=== PATIENT | male | born 1935 | race Caucasian/White ===

== ENCOUNTER → 2016-04-12 | Outpatient (CLI) | payer OTHER, MEDICARE ==
--- NOTE | 2016-04-12 15:30 | MR ---
MRI Brain Without Contrast dated April 12, 2016 Indication: 80-year-old man with paresthesias and numbness. Technique: Sagittal and axial T1, axial T2, FLAIR, susceptibility weighted, and diffusion-weighted im aging. Comparison: MRI of the brain dated August 22, 2014. Findings: Diffusion-weighted imaging is normal. No evidence of acute ischemia. The FLAIR and T2-weigh babak sequences reveal unchanged mild volume of subcortical and periventricular hyperintense white nilda er disease in the frontal, parietal, and to a lesser degree the occipital lobes. No new white matter lesion or involvement of the midbrain or cerebellum. Mild atrophy is unchanged. The midline ventricul ar system is normal caliber for degree of volume loss. The sagittal sinus and basivertebral arteries have normal black flow-void in T2-weighted imaging. The cervicooccipital junction is normal. The pitu itary gland is normal in size. The orbits are normal. Mild mucosal thickening in the maxillary air ce lls is unchanged. No layering fluid or evidence of acute sinusitis. Impression: 1. No acute intracranial process. Specifically, no acute intracranial hemorrhage or evidence of ische edvin. 2. 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
== END ==
LOC: FIMAGING 12:01
DX: R20.9 Unspecified disturbances of skin sensation (principal)

== ENCOUNTER → 2016-05-09 | Outpatient (CLI) | payer OTHER, MEDICARE ==
--- NOTE | 2016-05-09 14:04 | US ---
Bilateral Duplex Carotid Sonography Clinical Indications: 80-year-old male with tingling on the right side of his face and neck. Rule ou t hemodynamically significant stenosis. ICD 10 Diagnostic Codes: R20.0 and R20.2. Technique: The cervical portions of the carotid and vertebral arteries were imaged and interrogated by color and pulsed Doppler. Color and spectral Doppler analysis was performed. Cine clips are stored on PACS. Comparison Study: None. Findings: Right Carotid Artery: The common carotid artery, bulb, and the internal and external carotid arteries are well-imaged. There is some mild hypoechoic soft plaque seen along the anterior margin of the rig ht mid-common carotid artery, and there is also a moderate amount of echogenic calcific plaque along the posterior right carotid bulb (please reference image 16 and cine clip A: 4). The peak systolic ve locity in the internal carotid artery is 110 cm/s, with a peak diastolic velocity of 19 cm/s. The ICA to CCA systolic and diastolic ratios are normal. There is a moderate stenosis associated with the ex ternal carotid artery, with a peak systolic velocity of 223 cm/s. The ICA to CCA systolic and diastol ic ratios are normal. The right to left ICA systolic ratio is normal. Left Carotid Artery: The common carotid artery, bulb, and the internal and external carotid arteries are well-imaged. There is some hypoechoic soft plaque seen along the anterior and posterior margins o f the left carotid bulb. The peak systolic velocity in the internal carotid artery is 113 cm/s, with a peak diastolic velocity 20 cm/s. The ICA to CCA systolic and diastolic ratios are normal. The exter nal carotid artery is notable for a mild stenosis, with a peak systolic velocity of 149 cm/s. Vertebral Arteries: Antegrade flow is shown by pulsed Doppler of each vertebral artery. The peak sys tolic velocity in the right vertebral artery is 34 cm/s, and in the left vertebral artery is 116 cm/s . Impression: 1. There is bilateral atherosclerotic plaque; however, there is no sonographic evidence of a hemodyna mically significant ICA stenosis. 2. Moderate right and mild left external carotid artery stenoses. 3. Patent, antegrade vertebral arteries. Measurement of carotid stenosis is based on velocity parameters that correlate the residual internal carotid diameter with [place] Symptomatic Carotid Endarterectomy Trial (NASCET) based stenosis levels.
== END ==
LOC: FIMAGING 12:18
DX: I65.23 Occlusion and stenosis of bilateral carotid arteries (principal)

== ENCOUNTER 2018-09-07 12:38 | Observation (INO) | payer OTHER, MEDICARE | END 2018-09-08 12:45 | disposition home or self-care (01) | LOC: FSGY 12:38 → F3E 17:19 ==